=== PATIENT | female | born 1995 | race American Indian/Alaskan Native ===

== ENCOUNTER 2021-04-09 21:21 | Emergency (ER) | payer SELFPAY | END 2021-04-10 06:37 | LOC: ED 21:21 | DX: S69.91XA Unspecified injury of right wrist, hand and finger(s), initial encounter (principal); Z53.21 Procedure and treatment not carried out due to patient leaving prior to being seen by health care provider; X58.XXXA Exposure to other specified factors, initial encounter; Y93.89 Activity, other specified; Y92.89 Other specified places as the place of occurrence of the external cause; Y99.8 Other external cause status ==

== ENCOUNTER 2021-04-10 13:28 | Emergency (ER) | payer SELFPAY ==
--- NOTE | 2021-04-10 14:58 | Emergency Department Report ---
Upper Extremity - HPI Chief Complaint: Extremity Injury, Upper Stated Complaint: extremity injury Time Seen by Provider: 04/10/21 14:33 Upper Extremity: Right Hand Occurred When: 1 Day Mechanism: Crush Severity: moderate Symptoms: Yes Pain with Movement, Yes Laceration or Abrasion, No Deformity, No Limited Range of Movement, No Numbness, No Weakness, No Swelling, No Bruising/Ecchymosis Other History: 25-year-old female presents to the ER today with complaints of laceration to the second knuckle of right hand. She states that about 8 PM last night she got upset and punched a mirror. She states that the mirror broke and cut her on the second knuckle of her right hand. She states that she did come to the ER last night, but left because of the wait. She states that the wound has been bleeding intermittently. She reports pain mainly around the wound and some swelling. She reports no apparent foreign body, numbness or tingling. She is right-hand dominant and she is up-to-date on her tetanus. ED Review of Systems ROS: Stated complaint: extremity injury Other details as noted in HPI Comment: All other systems reviewed and negative Constitutional: denies: chills, fever Eyes: denies: eye pain, eye discharge, vision change ENT: denies: ear pain, throat pain Respiratory: denies: cough, shortness of breath, SOB with exertion, SOB at rest, wheezing Gastrointestinal: denies: abdominal pain, nausea, diarrhea, constipation, hematemesis, melena, hematochezia Genitourinary: denies: urgency, dysuria, frequency, hematuria, discharge, abnormal menses, dyspareunia Musculoskeletal: joint swelling, arthralgia Skin: other (laceration ) Neurological: denies: headache, weakness, numbness, paresthesias, confusion, abnormal gait, vertigo Psychiatric: denies: anxiety, depression, auditory hallucinations, visual hallucinations, homicidal thoughts, suicidal thoughts ED Past Medical Hx - Medications Home Medications: Home Medications Medication Instructions Recorded Confirmed Last Taken Type Ibuprofen [Motrin] 600 mg PO Q8H PRN #30 tablet 04/10/21 Unknown Rx Upper Extremity Exam - Exam General: Vital signs noted. No distress. Alert and acting appropriately. Head and Torso: No HEENT Abnormality, No Neck Tenderness, No Chest/Lungs Abnormality, No Abdominal Tenderness, No Back Tenderness Shoulder Exam: Yes Normal Range of Motion in Shoulder, No Shoulder Tenderness, No Clavicle Tenderness, No Shoulder Deformity, No AC Joint Tenderness Arm Exam: No Arm/Humerus Tenderness, No Arm Deformity Elbow: Yes Normal Range of Motion in Elbow, No Elbow Tenderness, No Elbow Deformity Wrist: Yes Normal ROM in Wrist, No Wrist Tenderness, No Wrist Deformity, No Snuffbox Tenderness, No Pain with Axial Thumb Compression Hand: Yes Digit Tenderness (Dorsal aspect of the second knuckle of the right hand), Yes Normal ROM in Digit(s), No Hand Tenderness, No Hand Deformity, No Digit(s) Deformity, No Tendon Dysfunction CMS Exam: Yes Broken Skin (Superficial 2 cm laceration noted to the dorsal aspect of the right hand over the second knuckle. Wound appears to be healing. There is some mild swelling around the wound but no signs of infection.), No Normal Distal Pulses, No Normal Capillary Refill, No Normal Distal Sensation ED Course Vital Signs 04/10/21 13:53 Temperature 99.3 F Pulse Rate 71 Respiratory 16 Rate Blood Pressure 132/74 O2 Sat by Pulse 100 Oximetry ED Medical Decision Making - Radiology Data Radiology results: report reviewed - Medical Decision Making Xray shows nothing acute. Incident occurred 8:00 last night. Laceration is superficial and appears to have started to heal. No apparent signs of secondary bacterial infection. At this time is best to allow wound to heal via secondary intention. X-ray discussed with patient. Wound care discussed with patient. She expressed understanding of all instructions and agree with plan. Patient was stable at time of discharge. Critical care attestation.: If time is entered above; I have spent that time in minutes in the direct care of this critically ill patient, excluding procedure time. ED Disposition Clinical Impression: Contusion, hand, Hand laceration Disposition: HOME / SELF CARE / HOMELESS Is pt being admited?: No Does the pt Need Aspirin: No Condition: Stable Instructions: Contusion, Nonsutured Laceration Care Additional Instructions: Keep wound clean daily with soap and water. Do not use alcohol or peroxide. Apply a thin layer of Neosporin after each cleaning. You can take Tylenol and/or ibuprofen as needed for pain. Follow-up with your primary care doctor. Return to the ER if there is any signs and symptoms of infection such as increasing redness, pus drainage and swelling. Prescriptions: Ibuprofen [Motrin] 600 mg PO Q8H PRN #30 tablet PRN Reason: Pain Referrals: [facility] [Provider Group] - 3-5 Days Forms: Work/School Release Form(ED) Time of Disposition: 16:20
[2021-04-10] MEDS ORDERED: IBUPROFEN 800 MG TAB PO ONE (15:55)
[2021-04-10] MEDS ORDERED: NEOMY 3.5 MG/BACIT 400 UNITS/POLY B 5000 UNITS/GM OINT PACKET TP ONE (16:17)
--- NOTE | 2021-04-10 16:17 | XRay Report ---
Right hand 2 views INDICATION: Laceration FINDINGS: No radiopaque foreign body seen in the soft tissues. MCP joints and IP joints appear normal . No acute fracture. Signer Name: Kiko Daugherty MD Signed: 04/10/2021 4:13 PM Workstation Name: [email or web address]
[2021-04-10 16:40] VITALS: BP 122/72
== END 2021-04-10 16:37 | disposition home or self-care (01) ==
LOC: ED 13:28
DX: S61.411A Laceration without foreign body of right hand, initial encounter (principal); W25.XXXA Contact with sharp glass, initial encounter; Y93.89 Activity, other specified; Y92.89 Other specified places as the place of occurrence of the external cause; Y99.8 Other external cause status
CPT/HCPCS: 99283